=== PATIENT | male | born 1960 | race Caucasian/White ===

== ENCOUNTER 2018-12-16 02:28 | Emergency (ER) | payer MEDICAID, OTHER ==
[~2018-12-16] VITALS: Ht 175.3 cm; Wt 117.9 kg
[2018-12-16 04:08] VITALS: BP 122/63
== END 2018-12-16 04:33 | disposition home or self-care (01) ==
LOC: ER 02:28
DX: S93.402A Sprain of unspecified ligament of left ankle, initial encounter (principal); E11.9 Type 2 diabetes mellitus without complications; I10 Essential (primary) hypertension; Z91.018 Allergy to other foods; X50.9XXA Other and unspecified overexertion or strenuous movements or postures, initial encounter; Y93.01 Activity, walking, marching and hiking; Y99.0 Civilian activity done for income or pay; Y92.89 Other specified places as the place of occurrence of the external cause
CPT/HCPCS: 73610; 73630; 82962

== ENCOUNTER 2018-12-23 09:44 | Emergency (ER) | payer MEDICAID, OTHER ==
[~2018-12-23] VITALS: Ht 175.3 cm; Wt 122.5 kg
[2018-12-23 09:56] VITALS: BP 176/78
== END 2018-12-23 12:14 | disposition home or self-care (01) ==
LOC: ER 09:46
DX: S93.602A Unspecified sprain of left foot, initial encounter (principal); E11.9 Type 2 diabetes mellitus without complications; I10 Essential (primary) hypertension; X58.XXXA Exposure to other specified factors, initial encounter; Y93.89 Activity, other specified; Y99.0 Civilian activity done for income or pay; Y92.89 Other specified places as the place of occurrence of the external cause
CPT/HCPCS: 93971